=== PATIENT | male | born 2005 | race Caucasian/White ===

== ENCOUNTER 2023-09-10 19:38 | Emergency (ER) | payer OTHER ==
[~2023-09-10] VITALS: Ht 177.8 cm; Wt 57.2 kg
[2023-09-10] MEDS: IBUPROFEN 800 MG TAB PO ONE (23:04)
[2023-09-10] MEDS: ACETAMINOPHEN 325 MG TAB PO ONE (23:04)
[2023-09-10 23:13] VITALS: BP 101/67; TEMP 100.4
[2023-09-10 23:14] VITALS: PULSE 110; RESP 18; O2SAT 95
== END 2023-09-10 23:11 | disposition home or self-care (01) ==
LOC: ER 19:38
DX: B34.9 Viral infection, unspecified (principal); R50.9 Fever, unspecified; R00.0 Tachycardia, unspecified; R07.89 Other chest pain
CPT/HCPCS: 71045

== ENCOUNTER 2023-09-20 18:31 | Emergency (ER) | payer OTHER ==
[~2023-09-20] VITALS: Ht 177.8 cm; Wt 54.1 kg
[2023-09-20 19:24] LABS: Basophils # (auto) 0 10 ^3/uL (0-0.2); Basophils % (auto) 0.2 % (0.0-2.0); Eosinophils # (auto) 0 10 ^3/uL (0-0.8); Hematocrit 42.6 % (41.0-53.0); Hemoglobin 14.4 g/dL (13.5-17.5); Lymphocytes # (auto) 1.2 10 ^3/uL (0.4-5.4); Lymphocytes % (auto) 12.9 % (10.0-50.0); Mean Corpuscular Hemoglobin 28.8 pg (28.0-32.0); Mean Corpuscular Hgb Conc. 33.9 g/dL (32.0-36.0); Mean Corpuscular Volume 85.1 fL (80.0-100.0); Monocytes # (auto) 0.8 10 ^3/uL (0-1.3); Neutrophils # (auto) 7.5 10 ^3/uL (1.6-8.6); Neutrophils % (auto) 78.9 % (37.0-80.0); Red Blood Cells 5.01 10^6/uL (4.5-5.90); Red Cell Distribution Width 14.1 % (11.8-14.3); White Blood Cell 9.6 10^3/uL (4.4-10.8)
[2023-09-20 19:44] LABS: Alanine Aminotransferase 15 U/L (7-40); Albumin 4.8 g/dL (3.2-4.8); Alkaline Phosphatase 81 U/L (46-116); Anion Gap 6 (5-15); Aspartate Aminotransferase 14 U/L (13-40); BUN/Creatinine Ratio 12.8 (10.0-20.0); Blood Urea Nitrogen 10 mg/dL (9-23); Calcium 9.6 mg/dL (8.5-10.1); Carbon Dioxide 30 mmol/L (20-30); Chloride 104 mmol/L (98-107); Glucose 94 mg/dL (74-106); Potassium 3.6 mmol/L (3.5-5.1); Sodium 140 mmol/L (136-145)
[2023-09-20 19:45] LABS: Bilirubin, Total 0.7 mg/dL (0.2-1.0); Total Protein 6.8 g/dL (5.7-8.2)
[2023-09-20] MEDS ORDERED: AUG875T PO (21:09)
[2023-09-20] MEDS ORDERED: AZITTAB2 PO (21:09)
[2023-09-20] MEDS ORDERED: cefTRIAXone SOD 500 MG VL IM ONE (21:15)
[2023-09-20 23:17] VITALS: BP 105/68; PULSE 97; RESP 20; TEMP 98.3; O2SAT 99
[2023-09-20] MEDS: cefTRIAXone SOD 1,000 MG VL IM ONE (23:34)
== END 2023-09-21 | disposition home or self-care (01) ==
LOC: ER 18:31
DX: J18.9 Pneumonia, unspecified organism (principal); R07.89 Other chest pain
CPT/HCPCS: 36415; 71046; 80053; 84484; 85025; 93005; 96372; 99285; J0696